=== PATIENT | female | born 1950 | race Caucasian/White ===

== ENCOUNTER → 2017-04-14 | Outpatient (CLI) | payer OTHER ==
--- NOTE | 2017-04-15 06:07 | PAP/PSG TECHNICIAN REPORT ---
[facility] Proof Machine Operator Polysomnogram Report Study name: None Report date: 04/15/2017 Study date: 04/14/2017 Referring Physician: Trey RAMIREZ M.D. Name: JYOTHI ROTH Interpreting Physician: Clay Mcduffie M.D. Date of : 1950 Proof Machine Operator: Daisy Arthur RPSGT. Sex: Female Age: 66 Study Type: PSG PAP Weight: 189 lbs Height: 66 years, Height 5' 9" BMI: 27.91 Medications: NO LIST AVAILABLE Patient History 66 yr-old female here for a new CPAP treatment study. She was found to be positive for KIMBERLY via a home sleep study. Her AHI was 35. She chose an Eson 2 nasal mask size small from [employer]. She was then switched to a Simplus full face mask size medium from [employer]. The test was started on room air and 4 CMH2O. ETCO2 testing was not utilized during this study. Room 1 Parameters Monitored NPSG: E1-M2, E2-M1, Fp1-M2, Fp2-M1, F3-M2, F4-M2, F4-M1, C3-M2, C4-M2, C4-M1, O1-M2, O2-M2, O2-M1, T3-M2, T4-M1, P3-M2, P4-M1, CHIN1, CHIN2, HR, EKG, Legs, PFLOW, SNOR, FLOW, CFLOW, Tidal Volume, THOR, ABDO, SpO2, PLTH, CPRESS, ETCO2 Wave, ETCO2, pH Sleep Architecture Sleep Stages Time at Lights Off 11:23:29 PM STAGES Time (min.) TST (%) Time at Lights On 5:33:29 AM Wake 180.0 -- Total Recording Time (TRT) 370.00 min. N1 35.5 19 Total Sleep Period (TSP) 318.0 min. N2 69.5 37 Total Sleep Time (TST) 190.0min. N3 0.0 0 Awake Time 180.0 min. REM 85.0 45 Wake after Sleep Onset 167.5 min. Sleep Efficiency (SE) 51 % Sleep Onset Latency (ARTURO) 12.5 min. Number of Stage 1 Shifts None Awakenings 19 Stage Changes 78 Number of REM periods 2 REM 85.0 45 REM Latency 223.0 min. NREM 105.0 55 Body Position Analysis Supine Right Left Side Prone Vertical Total Sleep Time (min.) 43.6 153.5 4.5 158.01 38.5 0.0 Total Sleep Time (%) 0% 81% 2% 83 17% N/A% Total Sleep Time REM (min.) 0.0 85.0 0.0 None 0.0 0.0 Total Sleep Time NREM (min.) 0.5 68.5 4.5 None 31.5 0.0 Intermittent Wake (min.) 43.1 113.2 16.7 None 7.0 0.0 Total Sleep Period (%) 14% None None None None None Arousals Myoclonus (PLM) * Events Count Index Events Count Index Spontaneous 3 1 Events Awake (PLMW) 92 30.7 Respiratory 23 7.9 Events Asleep w/ Arousal (PLMA) 33 10.4 PLM 33 10 Events Asleep w/o Arousal (PLMS) 353 111.5 Snoring 3 1 Total Asleep 386 121.9 Total 62 20 Total 478 78 Respiratory Analysis * CA OA MA CH H RERA Total Count 0 8 0 0 16 15 24 Index 0.0 2.5 0.0 0 5.1 5 12.3 Mean Duration 0.0 12.6 0.0 0.00 25.6 16.0 19.3 Longest Duration 0.0 14.6 0.0 0.00 0.0 17.9 48.6 Respiratory Event Summary Total Supine ~Supine Right Left Prone REM NREM Apneas Count 8 0 8 5 0 3 0 8 Index 2.5 0 3 2.0 0.0 6 0 5 Hypopneas (4% Desat) Count 16 0 16 13 0 3 4 12 Index 5.1 0.0 5 5.1 0.0 5.7 2.8 6.9 Apneas & All Hypopneas Count 24 0 24 18 0 6 4 20 Index 7.6 0 8 7 0 11 2.8 11.4 Respiratory Events (Museum Exhibit Designer+All Hyp+RERA) Count 24 0 39 30 1 8 4 20 Index 12.3 0 12 11.7 13.3 15.2 2.8 20.0 Respiratory Related Arousal Count 23 0 25 19 1 5 3 22 Index 7.9 0 8 7 13 10 2 13 Snoring Analysis Supine Right Left Prone REM NREM Total Snore duration 32.9 min Snores count 0 849 28 538 123 1,292 1,415 Snore mean duration 1.4 Sec Snores index 0 332 373 1,025 86.8 738.3 446.8 TST with snoring (%) 17.3% Desaturation Event Summary: Minimum %SpO2 Event Count Mean/Min/Max Duration(sec.) Desaturation Index % Time In Bed > 90 17 29.9 / 13.3 / 60.0 3.5 94.1 86 - 90 0 N/A 0.0 4.4 81 - 85 0 N/A 0.0 0.8 76 - 80 1 23.7 / 23.7 / 23.7 38.6 0.5 71 - 75 0 N/A 0.0 0.3 66 - 70 0 N/A 0.0 0.0 61 - 65 0 N/A 0.0 0.0 56 - 60 0 N/A 0.0 0.0 51 - 55 0 N/A 0.0 0.0 < 50 0 N/A 0.0 0.0 Total REM NREM Awake <50% 0.0 min. 0.0 min. 0.0 min. 0.0 min. 51 - 60% 0.0 min. 0.0 min. 0.0 min. 0.0 min. 61 - 70% 0.0 min. 0.0 min. 0.0 min. 0.0 min. 71 - 80% 2.4 min. 2.0 min. 0.0 min. 0.5 min. 81 - 90% 16.1 min. 5.0 min. 7.8 min. 3.4 min. 91 - 100% 293.3 min. 78.0 min. 97.2 min. 118.0 min. Average 93 93 93 93 Minimum SpO2 71 71 83 75 Desaturation Event Index 2.9 0.7 5.1 3.0 # Desat. Events below 89% 1 1 N/A N/A Time(%) with Saturation below 89% 2.3 1.8 0.4 0.2 Time(min.) with Saturation below 89% 7.3 5.6 1.2 0.5 Time (mins) REM (mins) NREM (mins) % of TST SpO2 Below 90% 8 1 N7 4.9 SpO2 Below 88% 0 0 0 3 Heart Rate Analysis Min (bpm) Max (bpm) Average (bpm) Awake 74 113 89 NREM 76 99 85 REM 79 101 88 Overall 76 101 86 Supplemental O2 Values Minimum O2 level: None Value Start Time End Time Proof Machine Operator Comments Ms. Roth slept in the right, left, and prone positions. No cardiac arrhythmias were noted. PLMs were noted. No bruxism noted. CPAP was initiated at +4 CMH2O and up-titrated to a level of +10 CMH2O, Cflex 2. She had a period of some anxiety while using a nasal mask. She then changed to a full face mask and eventually got back to sleep. A Simplus full face mask size medium from [employer] was used during titration She awoke to use the restroom two times during the night. After the second restroom trip, she requested to end the study. Ms. Roth stated that she slept about the same as usual. The final report will be interpreted and signed by a sleep physician. The completed physician report will then be placed in the patient medical record. CPAP REPORT Therapy Detail Time / Page # Comment CPAP 4 cm H2O Nasal Mask Flex Pressure Relief Humidifier on 11:21:21 PM / pg. 240 CPAP 6 cm H2O Nasal Mask Flex Pressure Relief Humidifier on 12:06:37 AM / pg. 331 INCREASED FOR APNEAS AND RERAS CPAP 8 cm H2O Nasal Mask Flex Pressure Relief Humidifier on 3:07:40 AM / pg. 693 INCREASED FOR AUDIBLE SNORING, RERAS, HYPOPNEAS AND APNEAS CPAP 10 cm H2O Nasal Mask Flex Pressure Relief Humidifier on 3:29:09 AM / pg. 736 INCREASED FOR EVENTS IN REM Therapy Event: Therapy (cm H20) 4 6 8 10 Total Time at Pressure (min.) 43.1 181.1 21.5 124.3 TST at Pressure (min.) 16.1 68.1 21.0 84.8 # Periods 1 1 1 1 Sleep Onset (min.) 12.5 0.0 0.0 0.0 REM Onset (min.) N/A N/A 11.3 0.0 Sleep Efficiency % 37 37 97 68 Wakefulness (%) 62.6 62.4 2.3 31.8 Wakefulness (min.) 27.0 113.0 0.5 39.5 NREM 1 (%) 21.2 13.7 7.0 0.0 NREM 1 (min.) 9.1 24.9 1.5 0.0 NREM 2 (%) 16.2 23.9 50.3 6.8 NREM 2 (min.) 7.0 43.2 10.8 8.5 NREM 3 (%) 0.0 0.0 0.0 0.0 NREM 3 (min.) 0.0 0.0 0.0 0.0 REM (%) 0.0 0.0 40.4 61.4 REM (min.) 0.0 0.0 8.7 76.3 # Arousals 9 46 4 3 Arousal Index 33.5 40.6 11.4 2.1 # Snore 162 1,014 133 106 Snore Index 602.6 894.0 380.2 75.0 AHI 14.9 9.7 25.7 0.0 AHI Supine N/A 0.0 N/A N/A AHI Non-Supine 14.9 9.8 25.7 0.0 NREM AHI 14.9 9.7 24.4 0.0 REM AHI N/A N/A 27.7 0.0 RDI 26.0 19.4 28.6 0.0 # Obstructive 2 6 0 0 # Central Ap 0 0 0 0 # Mixed 0 0 0 0 # Hypopneas 2 5 9 0 RERAS 3 11 1 0 Total Respiratory Events 7 22 10 0 Time Below SpO2 89.00% (min.) 0.0 0.0 6.5 0.3 Mean NREM SpO2 (%) 91 93 93 95 Mean REM SpO2 (%) N/A N/A 86 94 Mean Sleep SpO2 (%) 91 93 90 94 Min NREM SpO2 (%) 89 89 83 94 Min REM SpO2 (%) N/A N/A 71 88 Position Supine (min.) 0.0 0.5 0.0 0.0 Position Non-supine (min.) 16.1 67.6 21.0 84.8 LM Index Sleep 70.7 142.8 111.5 117.4 LM Index NREM 70.7 142.8 141.3 211.8 LM Index REM N/A N/A 69.2 106.9 Mean Heart Rate (bpm) 82 86 87 88 Min Heart Rate (bpm) 77 76 78 79
--- NOTE | 2017-04-15 15:10 | POLYSOMNOGRAPH REPORT ---
CLINICAL DATA: A 66-year-old female with BMI of 27.9 referred by Alexus Barillas and Dr. Amin for a CPAP titration study. She had home sleep apnea test which showed severe sleep apnea with an RDI of 35. She used a Simplus full facemask size medium from [employer]. SLEEP ARCHITECTURE: Total sleep period was 318 minutes. Total sleep time was 190 minutes divided between 105 minutes of non-REM sleep and 85 minutes of REM sleep. Sleep onset latency was 12.5 minutes. REM latency was 223 minutes. Sleep efficiency was 51%. Wake after sleep onset was elevated at 167.5 minutes. Sleep consisted of stage N1 19%, stage N2 37%, and REM 45%. AROUSAL DATA: Sixty-two arousals were recorded for an index of 20 per hour. Thirty-three were due to PLMs. PLM DATA: Severe PLMD was noted. There were 386 limb movements during sleep noted for an index of 122 per hour with arousal index of 10.4 per hour. RESPIRATORY DATA: The AHI was 7.6. The RDI was 12.3. There were 8 obstructive apneic episodes. The longest apneic episode was 14.6 seconds. There were 16 hypopneic episodes. The mean duration of hypopnea was 25.6 seconds. There were 15 RERAs. The longest RERA was 17.9 seconds. OXIMETRY DATA: Nocturnal hypoxemia was seen. Oxygen howard was 71% during REM. The mean saturation was 92%. Time below 89% was 2.3 minutes. EKG: Heart rates ranged from 76-101 beats per minute. POWER GRADER OPERATOR'S COMMENTS AND TREATMENT SUMMARY: The patient slept in the right, left, and prone positions. CPAP was titrated up to 10 cm water pressure at C-Flex setting 2. At her final pressure setting, patient slept for 84.8 minutes with an AHI of 0. IMPRESSION: 1. Severe sleep apnea corrected with CPAP 10 cm of water pressure, C-Flex 2 with a Simplus full facemask size medium from [employer]. 2. Severe periodic limb movement disorder. RECOMMENDATIONS: The patient should be started on CPAP at the above noted pressure. She should be seen back in followup within 90 days to document efficacy and compliance. If she continues to have sleep symptoms, treatment for and evaluation of causes for PLMD may be of benefit. Clinical correlation is needed. MTDD
== END | disposition home or self-care (01) ==
LOC: C.NEUR 21:00
PROVIDERS: ATTEND Nurse Practitioner Family
DX: G47.30 Sleep apnea, unspecified (principal); G47.61 Periodic limb movement disorder